=== PATIENT | male | born 1970 | race Caucasian/White ===

== ENCOUNTER → 2023-03-03 09:19 | Outpatient (BNVA) | payer MEDICAID, SELFPAY | PROVIDERS: PCP Nurse Practitioner Family; Referring Provider Nurse Practitioner Family; Visit Provider Anesthesiology Pain Medicine | DX: M54.50 Low back pain, unspecified (principal); G89.29 Other chronic pain | CPT/HCPCS: 72110 ==

== ENCOUNTER 2023-06-24 09:00 | Outpatient (CLI) | payer MEDICAID, SELFPAY ==
--- NOTE | 2023-06-24 09:05 | MR_ITS ---
WS: [id number] MRI LUMBAR SPINE NONCONTRAST TECHNIQUE: Sagittal T1, T2 and STIR imaging. Axial T1 and T2 imaging. CLINICAL INFORMATION: Lower back pain COMPARISON: None. FINDINGS: Mild lumbar curve. No acute compression. No high-grade central canal stenosis. L1-L2: Mild facet arthropathy. Spinal canal and foramen are patent. L2-L3: No significant disc bulging. Mild facet arthropathy. Spinal canal and foramen are patent. L3-L4: Mild annular bulging with narrowing of the subarticular recess bilaterally. Slight impingement traversing LEFT greater than RIGHT L4 nerve roots. Moderate facet arthropathy. LEFT foraminal protru danisha with a small annular fissure impinges the exiting LEFT L3 nerve root. Mild RIGHT foraminal narro wing. L4-L5: Mild annular bulging. Slight impingement subarticular recess bilaterally. Small LEFT foraminal protrusion with mild LEFT foraminal narrowing. RIGHT foramen is patent. Moderate facet arthropathy. L5-S1: Mild annular bulging. Slight impingement traversing LEFT S1 nerve root. Mild LEFT and no signi ficant RIGHT foraminal narrowing. Mild to moderate facet arthropathy. Visualized pelvic bony structures: Normal. Paravertebral soft tissues: Normal. MR/MR lumbar spine wo con* [id number] IMPRESSION: 1. Mild lumbar curve. No acute compression. No high-grade central canal stenos is. 2. Mild annular bulging L3-4 impinges the traversing LEFT greater than RIGHT L 4 nerve roots in the subarticular recess. 3. LEFT foraminal protrusion L3-4 impinges the exiting LEFT L3 nerve root with mild to moderate LEFT foraminal narrowing. 4. Mild annular bulging L4-5 with narrowing of the subarticular recess bilater ally. Mild LEFT L4-5 foraminal narrowing. 5. Mild annular bulge L5-S1 with slight contact of the LEFT S1 nerve root. Mil d LEFT L5-S1 foraminal narrowing. 6. Mild to moderate facet arthropathy L3-L5.
== END 2023-06-24 09:01 | disposition home or self-care (01) ==
LOC: RAD 09:01
PROVIDERS: PCP Nurse Practitioner Family; Visit Provider Nurse Practitioner Family
DX: M54.50 Low back pain, unspecified (principal); Q76.49 Other congenital malformations of spine, not associated with scoliosis; M51.37 Other intervertebral disc degeneration, lumbosacral region; M48.061 Spinal stenosis, lumbar region without neurogenic claudication
CPT/HCPCS: 72148

== ENCOUNTER → 2023-11-11 10:24 | Outpatient (BNVA) | payer MEDICAID, SELFPAY | PROVIDERS: PCP Nurse Practitioner Family; Referring Provider Nurse Practitioner Family; Visit Provider Psychiatry & Neurology Neurology | DX: M47.816 Spondylosis without myelopathy or radiculopathy, lumbar region (principal); R26.2 Difficulty in walking, not elsewhere classified | CPT/HCPCS: 36415; 80053; 82306; 83735; 85025 ==

== ENCOUNTER → 2023-11-18 13:52 | Outpatient (BNVA) | payer MEDICAID, SELFPAY | PROVIDERS: PCP Nurse Practitioner Family; Visit Provider Orthopaedic Surgery | DX: M54.16 Radiculopathy, lumbar region (principal) | CPT/HCPCS: 72110 ==

== ENCOUNTER 2023-12-22 06:00 | Outpatient (RCR) | payer MEDICAID, SELFPAY | END 2024-01-15 23:59 | disposition home or self-care (01) | LOC: MPT 06:00 | PROVIDERS: Visit Provider Orthopaedic Surgery | DX: M54.50 Low back pain, unspecified (principal); G89.29 Other chronic pain | CPT/HCPCS: 97110; 97140; 97162; G0283 ==

== ENCOUNTER 2024-01-16 06:00 | Outpatient (RCR) | payer MEDICAID, SELFPAY | END 2024-02-15 23:59 | disposition home or self-care (01) | LOC: MPT 06:00 | PROVIDERS: Visit Provider Orthopaedic Surgery | DX: M54.50 Low back pain, unspecified (principal); G89.29 Other chronic pain | CPT/HCPCS: 97110; G0283 ==